=== PATIENT | female | born 2005 | race Hispanic/Latino ===

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

== ENCOUNTER 2025-03-04 07:28 | Emergency (ER) | payer OTHER, SELFPAY | END 2025-03-04 07:58 | disposition home or self-care (01) | LOC: NAV ERS 07:28 | DX: L73.2 Hidradenitis suppurativa (principal); N61.1 Abscess of the breast and nipple | CPT/HCPCS: 99283 ==